=== PATIENT | male | born 1985 | race African-American/Black ===

== ENCOUNTER 2020-02-24 07:02 | Emergency (ER) | payer MEDICAID ==
[~2020-02-24] VITALS: Ht 175.3 cm; Wt 86.2 kg
[2020-02-24 07:10] VITALS: Ht 175.3 cm; Wt 86.2 kg
[2020-02-24 09:00] LABS: AMPHETAMINE QUAL UR NONE DETECTED (See below)
[2020-02-24 09:59] VITALS: BP 114/66
== END 2020-02-24 09:59 | disposition home or self-care (01) ==
LOC: ED 07:02
PROVIDERS: Emergency Medicine
DX: F12.90 Cannabis use, unspecified, uncomplicated (principal)